=== PATIENT | female | born 1995 | race Hispanic/Latino ===

== ENCOUNTER 2022-02-01 12:39 | Inpatient (IN) | payer MEDICAID, SELFPAY ==
[2022-02-01] MEDS ORDERED: Ondansetron ODT 4 MG TAB ONE (13:10)
[2022-02-01] MEDS ORDERED: Famotidine 20 MG TAB ONE (13:10)
[2022-02-01 13:12] LABS: #Basophils 0.1 thou/uL (0.0-0.2); #Eosinphils 0.1 thou/uL (0.0-0.7); #Lymphocytes 2.5 thou/uL (1.20-3.40); #Monocytes 0.6 thou/uL (0.11-0.59); #Neutrophils 9.8 thou/uL (1.40-6.50); %Basophils 0.7 % (0.0-1.0); %Eosinophils 0.6 % (0.0-10.0); %Lymphocytes 19.1 % (21.0-51.0); %Monocytes 4.5 % (0.0-10.0); %Neutrophils 75.1 % (42.0-75.0); Hemoglobin 13.3 g/dL (12.0-16.0); Mean Corpuscular HGB CONC 32.5 g/dL (32.0-36.0); Mean Corpuscular Hemoglobin 30.1 pg (27.0-31.0); Mean Corpuscular Volume 92.7 fL (78.0-98.0); Mean Platelet Volume 7.2 fL (7.4-10.4); Platelet Count 367 thou/uL (130-400); RBC Distribution Width 11.7 % (11.5-14.5); Red Blood Cell (RBC) Count 4.42 mill/uL (4.20-5.40)
[2022-02-01 13:45] LABS: ALT (SGPT) 34 U/L (8-55); AST (SGOT) 29 U/L (5-34); Albumin 4.3 g/dL (3.5-5.0); Alkaline Phosphatase 93 U/L (40-110); Anion Gap 15 mmol/L (10-20); BUN (Urea Nitrogen) 9 mg/dL (7.0-18.7); Bilirubin, Total 0.6 mg/dL (0.2-1.2); Calc. Creatinine Clearance 0 mL/min (70-130); Calcium 9.5 mg/dL (7.8-10.44); Carbon Dioxide 26 mmol/L (22-29); Chloride 98 mmol/L (98-107); Estimated GFR 108; Glucose 126 mg/dL (70-105); Lipase 237 U/L (8-78); Potassium 3.8 mmol/L (3.5-5.1); Protein, Total 7.3 g/dL (6.0-8.3); Sodium 135 mmol/L (136-145)
[2022-02-01 14:14] LABS: Bilirubin Negative (Negative); Blood, Urine Negative (Negative); Clarity Clear (Clear); Glucose, Urine (Dipstick) Normal (Negative); Ketone, Urine Negative (Negative); Leukocyte Negative Leu/uL (Negative); Nitrite Negative (Negative); Protein, Urine (Dipstick) Negative (Neg-Trace); Specific Gravity, Urine 1.007 (1.002-1.036); Urobilinogen Normal mg/dL (Less than 2); pH, Urine 7.5 (5.0-9.0)
[2022-02-01 14:55] LABS: Pregnancy Test - Urine (BHCG) Negative (Negative); Pregu Control Background? CLEAR/WHITE (CLR/WHITE); Pregu Control Bar Appear? YES (CONTROL BAR); Specific Gravity 1.007 (1.002-1.036)
[2022-02-01] MEDS ORDERED: Iopamidol-370 76% 500 ML 1 ML ONE (15:49)
[2022-02-01] MEDS ORDERED: Morphine 4 MG/ML VIAL ONE ×2 (16:07→16:56)
[2022-02-01] MEDS ORDERED: Senokot S 8.6-50 MG TAB PO PRN (17:02)
[2022-02-01] MEDS ORDERED: Guaifenesin DM 100-10/5 ML UDCUP PO PRN (17:02)
[2022-02-01] MEDS ORDERED: Lorazepam (BATCHED) 2 MG/ML SYR SLOW IVP PRN (17:52)
[2022-02-01] MEDS ORDERED: Electrolyte Replacement Protocol 1 EACH FS SCH (18:00)
[2022-02-01] MEDS ORDERED: Electrolyte Replacement Protocol FS PRN (18:15)
[2022-02-01] MEDS ORDERED: Acetaminophen 325 MG TAB PO PRN (18:30)
[2022-02-01 18:54] VITALS: BMI 31.1
[2022-02-01] MEDS: Lorazepam 1 MG TAB PO SCH (19:01)
[2022-02-01] MEDS: Sodium Chloride 0.9% 1,000 ML IV SCH (19:01)
[2022-02-01] MEDS: Thiamine HCl 200 MG/2 ML VIAL SLOW IVP SCH (19:01)
[2022-02-01] MEDS ORDERED: HYDROmorphone 0.5 MG/0.5 ML SYRINGE SLOW IVP SCH (19:52)
[2022-02-01] MEDS: Famotidine/PF 20 mg/2ml Vial SLOW IVP SCH (20:27)
[2022-02-01 20:48] LABS: Amphetamine Not Detected (NotDetected); Barbiturates Screen Not Detected (NotDetected); Benzodiazepine Screen Not Detected (NotDetected); Cocaine Metabolite Screen Not Detected (NotDetected); Methadone Not Detected (NotDetected); Methamphetamine Not Detected (NotDetected); Opiate Screen Not Detected (NotDetected); Oxycodone Screen Not Detected (NotDetected); Phencyclidine (PCP) Not Detected (NotDetected); THC/Cannabinoid Screen Not Detected (NotDetected); Tricyclic Screen Not Detected (NotDetected)
[2022-02-02] MEDS: Lorazepam 1 MG TAB PO SCH ×5 (00:38→23:18)
[2022-02-02] MEDS: Sodium Chloride 0.9% 1,000 ML IV SCH ×4 (00:39→20:14)
[2022-02-02] MEDS ORDERED: Fentanyl 100 MCG/2 ML VIAL SLOW IVP SCH (04:07)
[2022-02-02 06:08] LABS: #Basophils 0.1 thou/uL (0.0-0.2); #Eosinphils 0.2 thou/uL (0.0-0.7); #Lymphocytes 2.8 thou/uL (1.20-3.40); #Monocytes 0.8 thou/uL (0.11-0.59); #Neutrophils 7.4 thou/uL (1.40-6.50); %Basophils 0.8 % (0.0-1.0); %Eosinophils 1.7 % (0.0-10.0); %Lymphocytes 24.8 % (21.0-51.0); %Neutrophils 65.8 % (42.0-75.0); Hemoglobin 11.6 g/dL (12.0-16.0); Mean Corpuscular Hemoglobin 30.8 pg (27.0-31.0); Mean Corpuscular Volume 93.2 fL (78.0-98.0); Mean Platelet Volume 7.4 fL (7.4-10.4); Platelet Count 314 thou/uL (130-400); RBC Distribution Width 11.7 % (11.5-14.5); Red Blood Cell (RBC) Count 3.78 mill/uL (4.20-5.40); White Blood Cell (WBC) Count 11.2 thou/uL (4.8-10.8)
[2022-02-02 06:37] LABS: ALT (SGPT) 24 U/L (8-55); AST (SGOT) 20 U/L (5-34); Albumin 3.4 g/dL (3.5-5.0); Alkaline Phosphatase 78 U/L (40-110); Anion Gap 10 mmol/L (10-20); BUN (Urea Nitrogen) 6 mg/dL (7.0-18.7); Bilirubin, Total 0.4 mg/dL (0.2-1.2); CRP (Inflammatory) 0.79 mg/dL (= or < 0.5); Calc. Creatinine Clearance 150 mL/min (70-130); Calcium 7.8 mg/dL (7.8-10.44); Carbon Dioxide 24 mmol/L (22-29); Cardiac Risk 3.1 (Less than 4.5); Chloride 106 mmol/L (98-107); Cholesterol 121 mg/dl (< 200 Desired); Estimated GFR 122; Globulin 2.4 g/dL (2.4-3.5); Glucose 102 mg/dL (70-105); HDL Cholesterol 39 mg/dL (>60 Neg Risk); LDL Cholesterol, Calculated 60 mg/dL; Lipase 178 U/L (8-78); Potassium 3.7 mmol/L (3.5-5.1); Protein, Total 5.8 g/dL (6.0-8.3); Sodium 136 mmol/L (136-145); Triglycerides 111 mg/dL (Less than 150)
[2022-02-02] MEDS: Enoxaparin Sodium 40 MG/0.4 ML SYRINGE SC SCH (08:25)
[2022-02-02] MEDS: Folic Acid 1 MG TAB PO SCH (08:25)
[2022-02-02] MEDS: Famotidine/PF 20 mg/2ml Vial SLOW IVP SCH ×2 (08:25→20:11)
[2022-02-02] MEDS: Multivit, Therapeutic 1 TAB PO SCH (08:25)
[2022-02-02] MEDS: Ketorolac Tromethamine 30 MG/ML VIAL IVP SCH ×4 (10:16→23:20)
[2022-02-02 11:32] LABS: Syphilis Antibody Nonreactive (Nonreactive); Syphilis Antibody Index 0.01 S/CO (<1.00 Non-Reactive)
[2022-02-02] MEDS: Thiamine HCl 200 MG/2 ML VIAL SLOW IVP SCH (17:43)
[2022-02-02] MEDS: Ondansetron PF 4 MG/2 ML Vial IVP PRN ×2 (17:45→23:18)
[2022-02-02] MEDS ORDERED: Acetaminophen 325 MG TAB PO PRN (18:54)
[2022-02-02] MEDS ORDERED: Loperamide HCl 2 MG CAP PO SCH (22:15)
[2022-02-03] MEDS: Sodium Chloride 0.9% 1,000 ML IV SCH ×3 (03:42→19:14)
[2022-02-03 06:34] LABS: #Basophils 0.1 thou/uL (0.0-0.2); #Eosinphils 0.1 thou/uL (0.0-0.7); #Lymphocytes 2.8 thou/uL (1.20-3.40); #Monocytes 0.6 thou/uL (0.11-0.59); #Neutrophils 5.8 thou/uL (1.40-6.50); %Basophils 0.7 % (0.0-1.0); %Eosinophils 1.4 % (0.0-10.0); %Monocytes 6.5 % (0.0-10.0); %Neutrophils 61.4 % (42.0-75.0); Hemoglobin 11.4 g/dL (12.0-16.0); Mean Corpuscular HGB CONC 33.2 g/dL (32.0-36.0); Mean Corpuscular Volume 93.2 fL (78.0-98.0); Mean Platelet Volume 7.5 fL (7.4-10.4); Platelet Count 302 thou/uL (130-400); RBC Distribution Width 11.5 % (11.5-14.5); Red Blood Cell (RBC) Count 3.69 mill/uL (4.20-5.40); White Blood Cell (WBC) Count 9.5 thou/uL (4.8-10.8)
[2022-02-03] MEDS: Ketorolac Tromethamine 30 MG/ML VIAL IVP SCH ×3 (06:43→11:48)
[2022-02-03] MEDS: Lorazepam 1 MG TAB PO SCH ×2 (06:44→11:54)
[2022-02-03 06:56] LABS: Anion Gap 10 mmol/L (10-20); BUN (Urea Nitrogen) 4 mg/dL (7.0-18.7); Calc. Creatinine Clearance 160 mL/min (70-130); Calcium 7.9 mg/dL (7.8-10.44); Carbon Dioxide 24 mmol/L (22-29); Chloride 108 mmol/L (98-107); Estimated GFR 124; Glucose 86 mg/dL (70-105); Magnesium 2.1 mg/dL (1.6-2.6); Potassium 3.6 mmol/L (3.5-5.1); Sodium 138 mmol/L (136-145)
[2022-02-03 08:23] VITALS: BP 118/76; TEMP 97.4
[2022-02-03] MEDS: Folic Acid 1 MG TAB PO SCH (09:55)
[2022-02-03] MEDS: Multivit, Therapeutic 1 TAB PO SCH (09:55)
[2022-02-03] MEDS: Enoxaparin Sodium 40 MG/0.4 ML SYRINGE SC SCH (09:55)
[2022-02-03] MEDS: Famotidine/PF 20 mg/2ml Vial SLOW IVP SCH (09:55)
[2022-02-03] MEDS ORDERED: Lorazepam 1 MG TAB PO PRN (17:50)
[2022-02-04] MEDS ORDERED: Thiamine 100 MG TAB PO SCH (18:00)
== END 2022-02-03 17:37 | disposition home or self-care (01) | DRG 440 ==
LOC: ERS 12:39 → T4-B 17:02
PROVIDERS: ADMIT Internal Medicine; ATTEND Internal Medicine
DX: K85.20 Alcohol induced acute pancreatitis without necrosis or infection (principal); Z20.822 Contact with and (suspected) exposure to COVID-19; F41.9 Anxiety disorder, unspecified; F32.A Depression, unspecified; K21.9 Gastro-esophageal reflux disease without esophagitis; F10.10 Alcohol abuse, uncomplicated; K76.0 Fatty (change of) liver, not elsewhere classified; D72.829 Elevated white blood cell count, unspecified; Z88.5 Allergy status to narcotic agent
CPT/HCPCS: 36415; 74177; 80048; 80053; 80061; 80306; 80307; 81003; 81025; 83690; 83735; 85025; 86140; 86780; 96361; 96374; 96376; J1170; J1650; J1885; J2270; J2405; J3010; J3411; J7050; Q0162; Q9967; S0028; U0003; U0005

== ENCOUNTER 2023-04-02 00:09 | Emergency (ER) | payer OTHER, SELFPAY ==
[2023-04-02 01:01] LABS: #Basophils 0.2 thou/uL (0.0-0.2); #Eosinphils 0.1 thou/uL (0.0-0.7); #Monocytes 0.9 thou/uL (0.11-0.59); #Neutrophils 9.8 thou/uL (1.40-6.50); %Basophils 1.1 % (0.0-1.0); %Eosinophils 0.5 % (0.0-10.0); %Lymphocytes 36.2 % (21.0-51.0); %Monocytes 5.2 % (0.0-10.0); %Neutrophils 56.5 % (42.0-75.0); Hematocrit 39.9 % (36.0-47.0); Hemoglobin 13.3 g/dL (12.0-16.0); Mean Corpuscular HGB CONC 33.3 g/dL (32.0-36.0); Mean Corpuscular Hemoglobin 29.3 pg (27.0-31.0); Mean Corpuscular Volume 87.9 fl (78.0-98.0); Mean Platelet Volume 9.8 fL (7.4-10.4); Platelet Count 446 10x3/uL (130-400); RBC Distribution Width 12.9 % (11.5-14.5); Red Blood Cell (RBC) Count 4.54 mill/uL (4.20-5.40); White Blood Cell (WBC) Count 17.3 10x3/uL (4.8-10.8)
[2023-04-02 01:07] LABS: BHCG - Serum Negative (NEGATIVE); Pregs Control Background? CLEAR/WHITE (CLR/WHITE); Pregs Control Bar Appear? YES (CONTROL BAR)
[2023-04-02 01:26] LABS: ALT (SGPT) 50 U/L (8-55); AST (SGOT) 34 U/L (5-34); Albumin 4.7 g/dL (3.5-5.0); Alkaline Phosphatase 113 U/L (40-110); Anion Gap 14 mmol/L (10-20); BUN (Urea Nitrogen) 8 mg/dL (7.0-18.7); Bilirubin, Total 0.2 mg/dL (0.2-1.2); Calc. Creatinine Clearance 0 mL/min (70-130); Calcium 10.1 mg/dL (7.8-10.44); Carbon Dioxide 23 mmol/L (22-29); Chloride 105 mmol/L (98-107); Estimated GFR 104; Globulin 3.5 g/dL (2.4-3.5); Glucose 170 mg/dL (70-105); Lipase 44 U/L (8-78); Potassium 3.6 mmol/L (3.5-5.1); Protein, Total 8.2 g/dL (6.0-8.3); Sodium 138 mmol/L (136-145)
[2023-04-02] MEDS ORDERED: Ibuprofen 200 MG TAB ONE (01:44)
[2023-04-02 01:46] LABS: Acetaminophen Less than 10 mcg/mL (10.0-30.0); Salicylate Less than 8.0 mg/dL (15.0-30.0)
[2023-04-02 01:51] LABS: Bacteria/HPF None Seen HPF (None Seen); Bilirubin Negative (Negative); Blood, Urine Negative (Negative); CAUTI Indications for Culture Fever or rigors; Clarity Clear (Clear); Glucose, Urine (Dipstick) Normal (Negative); Ketone, Urine Negative (Negative); Leukocyte Negative Leu/uL (Negative); Nitrite Negative (Negative); Protein, Urine (Dipstick) Negative (Neg-Trace); RBC/HPF 0-3 HPF (0-3); Specific Gravity, Urine 1.002 (1.002-1.036); Squamous Epithelial 0-3 HPF (0-3); Urobilinogen Normal mg/dL (Less than 2); WBC/HPF None Seen HPF (0-3)
[2023-04-02 01:52] LABS: Urine Culture Reflex No No
[2023-04-02 01:58] LABS: Amphetamine Not Detected (NotDetected); Barbiturates Screen Not Detected (NotDetected); Benzodiazepine Screen Not Detected (NotDetected); Cocaine Metabolite Screen Not Detected (NotDetected); Methadone Not Detected (NotDetected); Methamphetamine Not Detected (NotDetected); Opiate Screen Not Detected (NotDetected); Oxycodone Screen Not Detected (NotDetected); Phencyclidine (PCP) Not Detected (NotDetected); THC/Cannabinoid Screen Not Detected (NotDetected); Tricyclic Screen Not Detected (NotDetected)
== END 2023-04-02 08:58 | disposition home or self-care (01) ==
LOC: ERS 00:09
DX: F10.129 Alcohol abuse with intoxication, unspecified (principal); R10.9 Unspecified abdominal pain
CPT/HCPCS: 36415; 71045; 80053; 80306; 80307; 81001; 83690; 84703; 85025